=== PATIENT | male | born 1960 | race Caucasian/White ===

== ENCOUNTER 2016-09-05 09:35 | Inpatient (IN) | payer OTHER ==
[2016-09-05] MEDS ORDERED: ASPIRIN PO STA (09:45)
[2016-09-05 10:05] LABS: MANUAL DIFF NEEDED? NO
[2016-09-05 10:07] LABS: BASO% 0.6 % (0.0-0.8); EOS# 0.19 X1000 (0.0-0.7); EOS% 4.1 % (0.0-10.0); HEMATOCRIT 44.4 % (42.0-52.0); HEMOGLOBIN 15.1 g/dL (14.0-18.0); IMM GRAN# 0.01 X1000 (0.0-0.04); IMM GRAN% 0.2 % (0.0-0.5); LYMPH# 1.29 X1000 (1.2-3.4); LYMPH% 27.6 % (20.5-51.1); MCH 32.8 PG (27-31); MCV 96.5 FL (81-99); MONO# 0.71 X1000 (0.11-0.59); MONO% 15.2 % (1.7-9.3); MPV 9.8 FL (7.4-10.4); NEUT% 52.3 % (42.2-75.2); PLT 124 X1000 (130-400)
--- NOTE | 2016-09-05 10:19 | EKG Report ---
Test Performed on : 09/05/2016 10:11:05 AM Test Reason : CHEST PAIN Blood Pressure : / mmHG Vent. Rate : 069 BPM Atrial Rate : 069 BPM P-R Int : 162 ms QRS Dur : 092 ms QT Int : 418 ms P-R-T Axes : 029 -12 033 degrees QTc Int : 447 ms Normal sinus rhythm. Septal infarct , age undetermined Abnormal ECG No previous ECGs available Unconfirmed Result
[2016-09-05 10:21] LABS: INR 1.05 (0.86-1.15)
[2016-09-05 10:26] LABS: AGAP 10; ALBUMIN 4.2 g/dL (3.5-5.0); ALKALINE PHOSPHATASE 62 U/L (32-122); BUN 14 mg/dL (8-22); CHLORIDE 96 mmol/L (98-107); CK PROFILE 177 U/L (24-204); COSMO 279; GOT 55 U/L (10-34); GPT 47 U/L (10-44); MAGNESIUM 1.6 mg/dL (1.5-2.7); POTASSIUM 4.1 mmol/L (3.5-5.1); SODIUM 134 mmol/L (136-145); TCO2 28 mmol/L (25-35); TOTAL PROTEIN 7.9 g/dL (6.3-8.3)
--- NOTE | 2016-09-05 10:32 | PROVIDER DOCUMENTATION ---
HPI-Respiratory General - General Chief Complaint: Shortness of Breath Stated Complaint: COLD SX/CONGESTION Time Seen by Provider: 09/05/16 09:45 Source: patient, family Allergies/Adverse Reactions: Patient Allergies Allergy/AdvReac Type Severity Reaction Status Date / Time indomethacin [From Indocin] Allergy Unknown Verified 06/04/14 17:50 indomethacin sodium * Allergy Unknown Verified 06/04/14 17:50 [From Indocin] - History of Present Illness-Resp Nature of Presenting Problem: Reports to er with cc of sob x 1 day. Reports went to [facility] o2 sat was lower 90's. Symptoms of cough,chest and nasal congestion. Denies n,v,f. No sick contacts. Hx of MA and stents. Severity in ED: reports: severe Onset/Duration: reports: 24 hours ago Timing: reports: still present Cough Quality/Degree: reports: dry cough Current Respiratory Medication Therapy: Initiated see nurses note Similar Symptoms Previously?: No Recently seen or treated by another doctor?: Yes Review of Systems - Adult - REVIEW OF SYSTEMS - ADULT Constitutional: denies: chills, fever, fatique Eyes: reports: no symptoms reported Ears, Nose, Mouth & Throat: reports: ear pain, sinus problem. denies: throat pain Cardiovascular: reports: no symptoms reported Respiratory: reports: cough, shortness of breath. denies: hemoptysis, pleurisy , wheezing Gastrointestinal: denies: abdominal pain, diarrhea, nausea, vomiting Genitourinary: reports: no symptoms reported Musculoskeletal: reports: no symptoms reported Integumentary: reports: no symptoms reported Neurological: reports: no symptoms reported Psychiatric: reports: no symptoms reported Endocrine: reports: no symptoms reported Hematologic/Lymphatic: reports: no symptoms reported Allergic/Immunologic: reports: no symptoms reported All Other Systems: Reviewed and Negative Past History - Adult - PAST MEDICAL HISTORY-ADULT Review of Records: reports: Nursing Assessment Review, Medications Reviewed Major Childhood Illnesses: reports: denies history Cardiovascular: reports: CAD, HTN, MA Respiratory: reports: COPD Gastrointestinal: reports: denies history Obstetrical/Gynecological: reports: denies history Genitourinary: reports: denies history Musculoskeletal: reports: denies history Neurological: reports: denies history Endocrine/Immune: reports: denies history, Diabetes Other Conditions: reports: denies history - PRIOR SURGERIES/PROCEDURES Surgical/Procedure History: reports: back/neck - IMMUNIZATION STATUS Childhood Immunizations: See Nurse Assessment Flu Vaccine: See Nurse Assessment - FAMILY HISTORY Family History: reviewed, not pertinent - SOCIAL HISTORY Smoking: quit greater than 1 year Substance Use: none/never Physical Exam-General - PHYSICAL EXAM-ADULT Initial Vital Signs Reviewed: Yes - CONSTITUTIONAL General Appearance: alert, mild distress. negative: appears well - EYES Eyes: PERRL/EOMI, pink conjunctivae, sclera injected - HEAD, EARS, NOSE, MOUTH & THROAT HENMT: moist mucous membranes, pharynx normal, TM abnormal (right red tm), TM obscurred by cerumen (left) - RESPIRATORY Respiratory: chest non-tender, normal breath sounds, no pleuratic chest pain, no respiratory distress, no accessory muscle use, wheezing (expiratory) - CARDIOVASCULAR Cardiovascular: normal peripheral pulses, regular rate, rhythm, no edema, no gallop, no JVD, no murmur - GASTROINTESTINAL (ABDOMEN) Abdominal Exam: normal bowel sounds, non tender, soft, no organomegaly, no pulsatile mass - MUSCULOSKELETAL Back Exam: normal inspection Extremity: normal range of motion, non-tender, normal gait, other (tattoo left forearm) - SKIN Integumentary: normal color, normal turgor, warm/dry - PSYCHIATRIC Psych/Mental Status: normal mood/affect, normal thought content, normal thought process, oriented x 3 Progress - PLAN OF CARE/RESULTS Progress/Plan/Lab Results: Orders Category Date Time Status Cardiac Monitoring DIRECTED Care 09/05/16 09:45 Active Cardiac Monitoring DIRECTED Care 09/05/16 09:46 Active Oxygen Therapy- ED Nursing DIRECTED Care 09/05/16 09:45 Active Oxygen Therapy- ED Nursing DIRECTED Care 09/05/16 09:46 Active Saline Loc NOW Care 09/05/16 09:45 Active Saline Loc NOW Care 09/05/16 09:46 Active CHEST-2 VIEWS [RAD] Stat Exams 09/05/16 09:44 Taken CBC WITH ELECTRONIC DIFF [HEME] Stat Lab 09/05/16 10:03 Completed CK PROFILE [SP CHEM] Stat Lab 09/05/16 10:03 Completed COMPREHENSIVE METABOLIC PANEL [CHEM] Stat Lab 09/05/16 10:[address] Stat Lab 09/05/16 10:00 Completed MAGNESIUM [CHEM] Stat Lab 09/05/16 10:03 Completed PRO B-NATRIURETIC PEPTIDE Stat Lab 09/05/16 10:03 Received [address]IME WITH INR PL [COAG] Stat Lab 09/05/16 10:[address] [COAG] Stat Lab 09/05/16 10:03 Completed TROPONIN T Stat Lab 09/05/16 10:03 Completed Aspirin Med 09/05/16 09:45 Discontinued 325 mg PO STAT STA EKG [EKG] Stat Ther 09/05/16 09:45 Draft EKG [EKG] Stat Ther 09/05/16 09:46 Ordered Vital Signs - 24 hr 09/05/16 09:38 Temperature 99.8 F H Pulse Rate 79 Respiratory 24 Rate Blood Pressure 165/92 O2 Sat by Pulse 92 L Oximetry Laboratory Tests 09/05/16 09/05/16 09/05/16 10:00 10:03 10:03 WBC RBC Hgb Hct MCV MCH MCHC RDW Std Deviation Plt Count MPV Immature Gran % (Auto) Neut % (Auto) Lymph % (Auto) [place] % (Auto) Eos % (Auto) Baso % (Auto) Immature Gran # (Auto) Neut # (Auto) Lymph # (Auto) [place] # (Auto) Eos # (Auto) Baso # (Auto) PT INR APTT (Factor Assay) Sodium 134 L Potassium 4.1 Chloride 96 L Carbon Dioxide 28 Anion Gap 10 BUN 14 Creatinine 1.2 Estimated GFR/1.73 m2 > 60 BUN/Creatinine Ratio 12 Glucose 286 H Calculated Osmolality 279 Calcium 9.0 Magnesium 1.6 Total Bilirubin 0.50 AST 55 H ALT 47 H Alkaline Phosphatase 62 Creatine Kinase 177 Troponin T < 0.010 Total Protein 7.9 Albumin 4.2 Globulin 4.0 Albumin/Globulin Ratio 1.0 Influenza A (Rapid) NEGATIVE Influenza B (Rapid) NEGATIVE 09/05/16 09/05/16 10:03 10:03 WBC 4.68 L RBC 4.60 L Hgb 15.1 Hct 44.4 MCV 96.5 MCH 32.8 H MCHC 34.0 RDW Std Deviation 13.0 Plt Count 124 L MPV 9.8 Immature Gran % (Auto) 0.2 Neut % (Auto) 52.3 Lymph % (Auto) 27.6 [place] % (Auto) 15.2 H Eos % (Auto) 4.1 Baso % (Auto) 0.6 Immature Gran # (Auto) 0.01 Neut # (Auto) 2.45 Lymph # (Auto) 1.29 [place] # (Auto) 0.71 H Eos # (Auto) 0.19 Baso # (Auto) 0.03 PT 14.0 INR 1.05 APTT (Factor Assay) 32.0 Sodium Potassium Chloride Carbon Dioxide Anion Gap BUN Creatinine Estimated GFR/1.73 m2 BUN/Creatinine Ratio Glucose Calculated Osmolality Calcium Magnesium Total Bilirubin AST ALT Alkaline Phosphatase Creatine Kinase Troponin T Total Protein Albumin Globulin Albumin/Globulin Ratio Influenza A (Rapid) Influenza B (Rapid) Orders Category Date Time Status Cardiac Monitoring DIRECTED Care 09/05/16 09:45 Active Cardiac Monitoring DIRECTED Care 09/05/16 09:46 Active Oxygen Therapy- ED Nursing DIRECTED Care 09/05/16 09:45 Active Oxygen Therapy- ED Nursing DIRECTED Care 09/05/16 09:46 Active Saline Loc NOW Care 09/05/16 09:45 Active Saline Loc NOW Care 09/05/16 09:46 Active CHEST-2 VIEWS [RAD] Stat Exams 09/05/16 09:44 Draft CBC WITH ELECTRONIC DIFF [HEME] Stat Lab 09/05/16 10:03 Completed CK PROFILE [SP CHEM] Stat Lab 09/05/16 10:03 Completed COMPREHENSIVE METABOLIC PANEL [CHEM] Stat Lab 09/05/16 10:[address] Stat Lab 09/05/16 10:00 Completed MAGNESIUM [CHEM] Stat Lab 09/05/16 10:03 Completed PRO B-NATRIURETIC PEPTIDE Stat Lab 09/05/16 10:03 Completed [address]IME WITH INR PL [COAG] Stat Lab 09/05/16 10:[address] [COAG] Stat Lab 09/05/16 10:03 Completed TROPONIN T Stat Lab 09/05/16 10:03 Completed Albuterol 2.5MG/Ipratrop 0.5MG [Duoneb (A & A)] Med 09/05/16 10:34 Discontinued 3 ml INH NOW ONE Aspirin Med 09/05/16 09:45 Discontinued 325 mg PO STAT STA Methylprednisolone Sod Succ [Solu-Medrol] Med 09/05/16 10:35 Discontinued 125 mg IV NOW ONE Aerosol Treatments Routine Oth 09/05/16 10:35 Completed Aerosol Treatments Stat Oth 09/05/16 10:35 Completed EKG [EKG] Stat Ther 09/05/16 09:45 Draft EKG [EKG] Stat Ther 09/05/16 09:46 Ordered Laboratory Tests 09/05/16 09/05/16 09/05/16 10:00 10:00 10:03 WBC RBC Hgb Hct MCV MCH MCHC RDW Std Deviation Plt Count MPV Immature Gran % (Auto) Neut % (Auto) Lymph % (Auto) [place] % (Auto) Eos % (Auto) Baso % (Auto) Immature Gran # (Auto) Neut # (Auto) Lymph # (Auto) [place] # (Auto) Eos # (Auto) Baso # (Auto) PT INR APTT (Factor Assay) D-Dimer < 0.22 L Sodium 134 L Potassium 4.1 Chloride 96 L Carbon Dioxide 28 Anion Gap 10 BUN 14 Creatinine 1.2 Estimated GFR/1.73 m2 > 60 BUN/Creatinine Ratio 12 Glucose 286 H Calculated Osmolality 279 Calcium 9.0 Magnesium 1.6 Total Bilirubin 0.50 AST 55 H ALT 47 H Alkaline Phosphatase 62 Creatine Kinase 177 Troponin T [id number]-Lwmkwmzgete Pept Total Protein 7.9 Albumin 4.2 Globulin 4.0 Albumin/Globulin Ratio 1.0 Influenza A (Rapid) NEGATIVE Influenza B (Rapid) NEGATIVE 09/05/16 09/05/16 09/05/16 10:03 10:03 10:03 WBC 4.68 L RBC 4.60 L Hgb 15.1 Hct 44.4 MCV 96.5 MCH 32.8 H MCHC 34.0 RDW Std Deviation 13.0 Plt Count 124 L MPV 9.8 Immature Gran % (Auto) 0.2 Neut % (Auto) 52.3 Lymph % (Auto) 27.6 [place] % (Auto) 15.2 H Eos % (Auto) 4.1 Baso % (Auto) 0.6 Immature Gran # (Auto) 0.01 Neut # (Auto) 2.45 Lymph # (Auto) 1.29 [place] # (Auto) 0.71 H Eos # (Auto) 0.19 Baso # (Auto) 0.03 PT INR APTT (Factor Assay) D-Dimer Sodium Potassium Chloride Carbon Dioxide Anion Gap BUN Creatinine Estimated GFR/1.73 m2 BUN/Creatinine Ratio Glucose Calculated Osmolality Calcium Magnesium Total Bilirubin AST ALT Alkaline Phosphatase Creatine Kinase Troponin T < 0.010 Voo-P-Ctbvdzdbcyu Pept 205 H Total Protein Albumin Globulin Albumin/Globulin Ratio Influenza A (Rapid) Influenza B (Rapid) 09/05/16 10:03 WBC RBC Hgb Hct MCV MCH MCHC RDW Std Deviation Plt Count MPV Immature Gran % (Auto) Neut % (Auto) Lymph % (Auto) [place] % (Auto) Eos % (Auto) Baso % (Auto) Immature Gran # (Auto) Neut # (Auto) Lymph # (Auto) [place] # (Auto) Eos # (Auto) Baso # (Auto) PT 14.0 INR 1.05 APTT (Factor Assay) 32.0 D-Dimer Sodium Potassium Chloride Carbon Dioxide Anion Gap BUN Creatinine Estimated GFR/1.73 m2 BUN/Creatinine Ratio Glucose Calculated Osmolality Calcium Magnesium Total Bilirubin AST ALT Alkaline Phosphatase Creatine Kinase Troponin T Mcx-B-Ixgkcvpdrwn Pept Total Protein Albumin Globulin Albumin/Globulin Ratio Influenza A (Rapid) Influenza B (Rapid) 130[address] DR.[place] gerard - REASSESSMENT Reassessment #1 Time Reassessed: 12:29 (After albuterol treatment no relief still has low 02 sat in the 80's. MD Araujo at bedside reports to pt that he will need to be admitted pt verbally agrees with poc and teratment.) - EKG 1 Time of EKG reading by physician:: 10:11 EKG Read and Signed by:: Alexa Araujo Jr EKG Interpretation (*Must complete 3 of following elements*): Abnormal (septal infarct age undetermined) Rate: 69 Rhythm: nsr [place]: normal 2 Time of EKG reading by physician:: 12:13 EKG Read and Signed by:: Alexa Araujo Jr EKG Interpretation (*Must complete 3 of following elements*): Abnormal (septal infarct age undetermined) Rate: 63 Rhythm: nsr [place]: normal QRS: other (low voltage QRS) - XRAY 1 XRAY: Bilateral XRAY Study: Chest Impression: Abnormal XRAY Interpretation: CMG - CONSULTS/PCP/HOSPITALIST Notification #1 *Consult/PCP/Hospitalist*: Time Discussed: 13:03 Consult Disposition: Admit (to ) Departure - Departure Time of Disposition Order: 12:37 DIAGNOSIS: COPD exacerbation Disposition: ADMITTED INPATIENT 09 Certified Medical Emergency: Emergent Condition: Stable Referrals: Alexis Meeks MD [Primary Care Provider] - Attestation - Scribe Verification/Attestation Scribe:: Ping Campos Acting as Scribe for:: Alexa Araujo Jr Scribe documention review:: This chart was documented by a scribe and accurately reflects the service the provider performed and the decisions made by the provider.
[2016-09-05] MEDS ORDERED: DUONEB (A & A) INH ONE (10:34)
[2016-09-05] MEDS ORDERED: SOLU-MEDROL IV ONE (10:35)
--- NOTE | 2016-09-05 10:36 | Diag Imaging Result Document ---
PROCEDURE NAME: CHEST-2 VIEWS - 09/05/2016 CHEST TWO VIEWS: INDICATION: Shortness of breath. FINDINGS: There is cardiomegaly. No infiltrates or effusions are appreciated No pneumothorax. There are postsurgical changes lower cervical spine. IMPRESSION: Cardiomegaly.
--- NOTE | 2016-09-05 12:38 | EKG Report ---
Test Performed on : 09/05/2016 12:13:26 PM Test Reason : SOB Blood Pressure : / mmHG Vent. Rate : 063 BPM Atrial Rate : 063 BPM P-R Int : 148 ms QRS Dur : 090 ms QT Int : 428 ms P-R-T Axes : 031 -12 046 degrees QTc Int : 437 ms Normal sinus rhythm. Low voltage QRS Septal infarct (cited on or before 05-SEP-2016) Abnormal ECG When compared with ECG of 05-SEP-2016 10:11, (Unconfirmed) Questionable change in initial forces of Septal leads Unconfirmed Result
[2016-09-05] MEDS: DUONEB (A & A) INH SCH ×3 (15:00→19:54)
[2016-09-05] MEDS ORDERED: TYLENOL PO PRN (21:20)
[2016-09-05] MEDS ORDERED: ZOFRAN IV PRN (21:20)
[2016-09-05] MEDS ORDERED: SODIUM CHLORIDE 0.9% INJ SCH (21:30)
[2016-09-05] MEDS: NS 1,000 ML IV SCH (22:05)
[2016-09-05] MEDS: LOVENOX SUBQ SCH (22:05)
[2016-09-05] MEDS: PROTONIX IV SCH (22:05)
[2016-09-05] MEDS: SOLU-MEDROL IV SCH (22:05)
[2016-09-05] MEDS: LEVAQUIN 500 MG/D5W 100 ML IV SCH (22:05)
[2016-09-06] MEDS: EFFIENT PO SCH ×2 (00:20→21:21)
[2016-09-06] MEDS: ROCEPHIN 1 GM/NS 50 ML IV SCH ×2 (00:44→22:39)
[2016-09-06] MEDS: DUONEB (A & A) INH SCH ×7 (03:46→22:36)
[2016-09-06] MEDS: SOLU-MEDROL IV SCH ×3 (05:02→21:18)
[2016-09-06] MEDS ORDERED: DUONEB (A & A) INH PRN (06:16)
[2016-09-06 06:17] LABS: HEMATOCRIT 41.6 % (42.0-52.0); MCHC 33.7 g/dL (33-37); MCV 95.2 FL (81-99); MPV 10.2 FL (7.4-10.4); RBC 4.37 XMIL (4.7-6.1)
[2016-09-06 06:33] LABS: AGAP 8; ALBUMIN 3.8 g/dL (3.5-5.0); ALKALINE PHOSPHATASE 53 U/L (32-122); BUN 19 mg/dL (8-22); CALCIUM 8.9 mg/dL (8.8-10.2); CHLORIDE 99 mmol/L (98-107); COSMO 277; GOT 41 U/L (10-34); GPT 39 U/L (10-44); POTASSIUM 4.2 mmol/L (3.5-5.1); SODIUM 132 mmol/L (136-145); TCO2 26 mmol/L (25-35); TOTAL PROTEIN 7.2 g/dL (6.3-8.3)
[2016-09-06] MEDS: KLOR-CON PO SCH (08:12)
[2016-09-06] MEDS: COREG PO SCH ×2 (08:12→21:00)
[2016-09-06] MEDS: LASIX PO SCH (08:12)
[2016-09-06] MEDS: HUMALOG SUBQ SCH ×2 (08:53→11:36)
[2016-09-06] MEDS ORDERED: EFFIENT PO SCH (09:00)
[2016-09-06] MEDS ORDERED: CARAFATE PO SCH (09:00)
--- NOTE | 2016-09-06 09:16 | PROGRESS NOTE ---
DATE: 09/06/2016 SUBJECTIVE: The patient states he is feeling a little bit better. Less cough, congestion. Still having some chest pressure when he coughs. Still having a headache when he coughs. Denies any GI or issues otherwise. OBJECTIVE: Vital signs: Temperature 98 degrees, pulse 84, respiratory 20, BP 153/87. General: The patient is well developed, well nourished. He is in no true respiratory distress. He is awake, alert. Neck: Supple. CV: Regular rate. Chest: Relatively clear compared to yesterday's exam but still having some diffuse wheezing. Better air movement. Abdomen: Soft, nondistended. Extremities: Moves all extremities. Neurologic: No changes. LABS: CBC and CMP essentially normal with a sodium of 132. ASSESSMENT: 1. Hyponatremia, stable. 2. Hyperglycemia in the setting of diabetes with a patient on steroids. Continue sliding scale insulin. 3. Chronic obstructive pulmonary disease with exacerbation. 4. Chronic tobacco abuse. Again, discussed with the patient the perils of smoking and smoke exposure. 5. Hypothyroidism. 6. High cholesterol. 7. Hypertension. 8. Chronic reflux. 9. Chronic obstructive pulmonary disease with acute hypoxic respiratory failure. PLAN: We will continue to wean his oxygen. Continue breathing treatments. Continue weaning steroids, antibiotics. Hopefully home in the next 2-3 days.
[2016-09-06] MEDS: NS 1,000 ML IV SCH (11:40)
[2016-09-06] MEDS ORDERED: CHLORASEPTIC SPRAY MT PRN (13:56)
[2016-09-06] MEDS: HUMALOG DOSE (PARKWAY) SUBQ SCH ×2 (15:47→22:29)
[2016-09-06] MEDS ORDERED: EFFIENT ONE (21:06)
[2016-09-06] MEDS: LOVENOX SUBQ SCH (21:18)
[2016-09-06] MEDS: PROTONIX IV SCH (21:18)
[2016-09-06] MEDS: LEVAQUIN 500 MG/D5W 100 ML IV SCH (21:18)
[2016-09-06] MEDS: ZYRTEC PO SCH (21:19)
[2016-09-06] MEDS: SYNTHROID PO SCH (21:20)
[2016-09-06] MEDS: ZOCOR PO SCH (21:20)
[2016-09-06] MEDS: ZYLOPRIM PO SCH (21:20)
[2016-09-06] MEDS: ASPIRIN EC PO SCH (21:21)
[2016-09-06] MEDS: ACTOS PO SCH (21:21)
[2016-09-07] MEDS ORDERED: AMBIEN PO ONE ×2 (00:15→20:35)
[2016-09-07] MEDS ORDERED: AMBIEN ONE (00:33)
[2016-09-07] MEDS: DUONEB (A & A) INH SCH ×6 (03:47→22:29)
[2016-09-07] MEDS: SOLU-MEDROL IV SCH ×2 (04:39→16:29)
[2016-09-07 06:11] LABS: HEMATOCRIT 38.4 % (42.0-52.0); MCH 32.7 PG (27-31); MCHC 33.9 g/dL (33-37); MCV 96.7 FL (81-99); MPV 10.3 FL (7.4-10.4); RBC 3.97 XMIL (4.7-6.1)
[2016-09-07] MEDS: HUMALOG DOSE (PARKWAY) SUBQ SCH ×4 (06:17→21:06)
[2016-09-07 06:22] LABS: HEMOGLOBIN A1C 8.8 % (4.8-6.0)
[2016-09-07 07:00] LABS: AGAP 6; ALBUMIN 3.7 g/dL (3.5-5.0); ALKALINE PHOSPHATASE 51 U/L (32-122); BUN 20 mg/dL (8-22); CALCIUM 8.9 mg/dL (8.8-10.2); CHLORIDE 99 mmol/L (98-107); COSMO 281; GOT 30 U/L (10-34); GPT 34 U/L (10-44); POTASSIUM 4.8 mmol/L (3.5-5.1); SODIUM 133 mmol/L (136-145); TCO2 28 mmol/L (25-35); TOTAL PROTEIN 6.8 g/dL (6.3-8.3)
[2016-09-07] MEDS: PATIENT'S OWN MED PO SCH ×2 (08:10→21:02)
[2016-09-07] MEDS: NS 1,000 ML IV SCH ×2 (08:10→16:28)
[2016-09-07] MEDS: EFFIENT PO SCH (08:14)
[2016-09-07] MEDS: COREG PO SCH ×2 (08:14→20:27)
[2016-09-07] MEDS: LASIX PO SCH (08:14)
--- NOTE | 2016-09-07 08:35 | Diag Imaging Result Document ---
PROCEDURE NAME: CHEST-2 VIEWS - 09/07/2016 CHEST, TWO VIEWS: COMPARISON: 09/05/2016. INDICATION: Hypoxia. FINDINGS: There is stable borderline cardiomegaly. Stable postsurgical changes lower cervical spine. The pulmonary vasculature is not congested. No acute infiltrates or effusions are appreciated. There is no pneumothorax. IMPRESSION: Stable chest. No acute abnormalities.
[2016-09-07] MEDS: KLOR-CON PO SCH (08:55)
[2016-09-07] MEDS ORDERED: AYR NASAL SPRAY NAS PRN (10:32)
--- NOTE | 2016-09-07 11:26 | PROGRESS NOTE ---
DATE: 09/07/2016 SUBJECTIVE: Patient states he is feeling a little bit better. He is having less cough, congestion, less shortness of breath. He actually slept somewhat last night. He denies any chest pain or palpitations. OBJECTIVE/PHYSICAL EXAMINATION: Vital signs: Temp 98, pulse 70, respiratory rate 20, BP 130/78, sat 96% on 2 L. General: The patient is well developed and well nourished, currently in mild respiratory distress. He is awake, alert, and oriented. Neck: Supple. CV: Regular rate. Chest: Relatively clear. He has got mild wheezing, but this is very close to his baseline. Abdomen: Soft, obese, nondistended. Extremities: He moves all extremities. Neurological: No changes. Skin: Warm and dry no rashes. IMAGING: Chest x-ray clear. LABS: WBCs 12. Sodium 133, glucose 310. ASSESSMENT: 1. Leukocytosis likely secondary to his steroid as he is clinically better. 2. Chronic obstructive pulmonary disease with exacerbation. 3. Diabetes with poor home control. A1c is 8.8. 4. Hypothyroidism, stable. 5. Chronic tobacco abuse. Again, discussed with patient the perils of smoking as well as ways to stop. 6. High cholesterol. 7. Hypertension. 8. Chronic reflux, certainly could be contributing some to his symptom. Therefore, he was placed on IV Protonix. PLAN: Will decrease his Solu-Medrol today. Will continue to follow. Hopefully, we will able to discharge home in the next 1-2 days. Will attempt to wean off oxygen, if possible.
[2016-09-07] MEDS: PROTONIX IV SCH ×2 (20:26→21:02)
[2016-09-07] MEDS: ACTOS PO SCH (20:26)
[2016-09-07] MEDS: LOVENOX SUBQ SCH ×2 (20:26→21:02)
[2016-09-07] MEDS: SYNTHROID PO SCH (20:26)
[2016-09-07] MEDS: ASPIRIN EC PO SCH (20:27)
[2016-09-07] MEDS: ZYRTEC PO SCH (20:27)
[2016-09-07] MEDS: ZYLOPRIM PO SCH (20:27)
[2016-09-07] MEDS: ZOCOR PO SCH (20:27)
[2016-09-07] MEDS: LEVAQUIN 500 MG/D5W 100 ML IV SCH (21:02)
[2016-09-07] MEDS: ROCEPHIN 1 GM/NS 50 ML IV SCH (23:20)
[2016-09-08] MEDS: DUONEB (A & A) INH SCH ×6 (03:36→23:11)
[2016-09-08] MEDS: SOLU-MEDROL IV SCH ×2 (05:21→16:20)
[2016-09-08] MEDS: HUMALOG DOSE (PARKWAY) SUBQ SCH ×4 (06:40→20:39)
[2016-09-08] MEDS: NS 1,000 ML IV SCH (07:49)
[2016-09-08 08:35] LABS: AGAP 7; ALBUMIN 3.6 g/dL (3.5-5.0); ALKALINE PHOSPHATASE 49 U/L (32-122); BUN 23 mg/dL (8-22); CALCIUM 8.7 mg/dL (8.8-10.2); CHLORIDE 101 mmol/L (98-107); COSMO 290; GOT 27 U/L (10-34); GPT 31 U/L (10-44); POTASSIUM 4.2 mmol/L (3.5-5.1); SODIUM 137 mmol/L (136-145); TCO2 29 mmol/L (25-35); TOTAL PROTEIN 6.5 g/dL (6.3-8.3)
[2016-09-08] MEDS ORDERED: LEVAQUIN 500 MG/D5W 100 ML IV SCH (09:10)
--- NOTE | 2016-09-08 09:28 | PROGRESS NOTE ---
DATE: 09/08/2016 SUBJECTIVE: The patient still notes he is having increased work of breathing, increased shortness of breath, cough congestion. Denies any true chest pain, palpitations. Denies any GI or issues. OBJECTIVE: Vital Signs: Temperature 97, pulse 67, respiratory rate 18, BP 134/58. General: The patient is well developed, well nourished. He is currently in mild respiratory distress. He is awake, alert, oriented. Neck: Supple. CV: Regular rate. Chest: Clear. Nonlabored. Abdomen: Soft. HEENT: Normocephalic, atraumatic. Neck: Supple. CV regular rate. Chest: Decreased breath sounds but equal bilaterally. Abdomen: Soft, nondistended. Extremities: Moves all extremities. Neurologic: No changes. LABS: Stable. Blood sugars are still elevated in the 300s. ASSESSMENT: 1. Chronic obstructive pulmonary disease with exacerbation. Continue steroids, breathing treatments, antibiotics. He currently has weaned off of oxygen. We will saline lock. 2. Diabetes. Poor control. Blood sugars in the 300 range. Continue sliding scale insulin. He is on Actos 30. 3. Known coronary artery disease. Continue Effient. 4. Hypertension, stable.
[2016-09-08] MEDS: COREG PO SCH ×2 (09:45→20:43)
[2016-09-08] MEDS: KLOR-CON PO SCH (09:45)
[2016-09-08] MEDS: LASIX PO SCH (09:46)
[2016-09-08] MEDS: SYNTHROID PO SCH (20:43)
[2016-09-08] MEDS: EFFIENT PO SCH (20:43)
[2016-09-08] MEDS: ACTOS PO SCH (20:47)
[2016-09-08] MEDS: ASPIRIN EC PO SCH (20:47)
[2016-09-08] MEDS: ROCEPHIN 1 GM/NS 50 ML IV SCH (20:48)
[2016-09-08] MEDS: ZYLOPRIM PO SCH (20:48)
[2016-09-08] MEDS: LOVENOX SUBQ SCH (20:48)
[2016-09-08] MEDS: ZOCOR PO SCH (20:48)
[2016-09-08] MEDS: ZYRTEC PO SCH (20:50)
[2016-09-08] MEDS ORDERED: LANTUS INSULIN (PARKWAY) SUBQ SCH (21:00)
[2016-09-08] MEDS ORDERED: LEVAQUIN PO SCH (21:00)
[2016-09-08] MEDS: PATIENT'S OWN MED PO SCH (21:05)
[2016-09-08] MEDS ORDERED: AMBIEN PO ONE (21:59)
[2016-09-09] MEDS: DUONEB (A & A) INH SCH ×2 (02:47→08:20)
[2016-09-09] MEDS: SOLU-MEDROL IV SCH (06:13)
[2016-09-09] MEDS ORDERED: PROTONIX PO SCH (07:00)
[2016-09-09] MEDS: HUMALOG DOSE (PARKWAY) SUBQ SCH ×2 (07:01→11:15)
[2016-09-09 07:53] VITALS: BP 140/71
[2016-09-09] MEDS: COREG PO SCH (08:15)
[2016-09-09] MEDS: EFFIENT PO SCH (08:15)
[2016-09-09] MEDS: LASIX PO SCH (08:16)
[2016-09-09] MEDS: KLOR-CON PO SCH (08:16)
--- NOTE | 2016-09-09 16:15 | HISTORY AND PHYSICAL ---
CHIEF COMPLAINT: Shortness of breath. HISTORY OF PRESENT ILLNESS: Patient is a 55-year-old male who has a known history of COPD and a former smoker. He states he stopped several years ago. Presents to the emergency department with increased cough, congestion, shortness of breath, and increased work of breathing. He denies any fevers or chills. He has a history of coronary artery disease and has had heart stents placed. ALLERGIES: Indomethacin. REVIEW OF SYSTEMS: Denies any current fevers or chills. Does have sinus congestion and drainage. Denies any production to his cough. States he has been short of breath, wheezing, difficulty breathing, dyspnea on exertion. Denies any PND or orthopnea. Denies any pedal edema. No dysuria or frequency. Denies hesitancy, polyuria, polydipsia. Denies constipation, melena, hematochezia. PAST MEDICAL HISTORY: Known coronary artery disease with recent stent placement. History of MD, hypertension, COPD. History of diabetes, chronic neck and back pain. FAMILY HISTORY: Noncontributory. SOCIAL HISTORY: Patient is reviewed. He does have a long history of smoking, although he stopped greater than a year ago. MEDICATIONS: Actos. Nesina. He is not currently on insulin at home. He does take something for blood pressure. Has nebulized treatments at home. He does not remember the rest of his medication list currently. PHYSICAL EXAMINATION: VITAL SIGNS: Temperature 98 degrees, pulse 79, respiratory 24, BP 165/92. GENERAL: Patient is well-developed, well-nourished. Currently in no real respiratory distress. He is awake, alert, oriented. NECK: Supple. CV: Regular rate and rhythm. No appreciable murmurs. CHEST: Decreased breath sounds bilaterally but equal. Positive wheezing. No apparent crackles. ABDOMEN: Soft, nondistended, nontender. EXTREMITIES: Moves all extremities. NEUROLOGIC: No focal changes. SKIN: Warm and dry, no rashes. DIAGNOSTIC DATA: WBCs 4, hemoglobin and hematocrit 15 and 44. Sodium 134, glucose 286, ALT 55, AST 47. Chest x-ray relatively clear. Flu swab negative. D-dimer is less than 0.22. ASSESSMENT: 1. Chronic obstructive pulmonary disease with moderate exacerbation. 2. Diabetes with hyperglycemia. 3. Hypertension. 4. Known coronary artery disease. PLAN: We will admit patient to the hospital. IV fluids. Oxygen, breathing treatments, antibiotics. We will start him on steroids and sliding scale insulin to control his blood sugars.
--- NOTE | 2016-09-09 22:16 | DISCHARGE SUMMARY ---
ADMISSION DATE: 09/05/2016 DISCHARGE DATE: 09/09/2016 DISCHARGE DIAGNOSES: 1. Chronic obstructive pulmonary disease with moderate exacerbation. 2. Diabetes with hyperglycemia and poor home control, A1c 8.8. 3. Hypertension. 4. Known coronary artery disease. 5. High cholesterol. 6. Chronic pain. 7. Hypoxemia secondary to chronic obstructive pulmonary disease exacerbation resolved. CONSULTATIONS: None. PROCEDURES: None. BRIEF HOSPITAL COURSE: The patient was admitted to the hospital as noted in HPI and treated in the usual fashion, placed on breathing treatments, oxygen, steroids, antibiotics. Thankfully he had an uneventful course. His blood sugars were easily maintained with sliding scale insulin. On discharge he was awake, alert. He was still tired and short of breath, still had faint wheezing but marked improvement from his initial admission. DISPOSITION: Spent 36 minutes in discharge planning and instructions discussing with patient that he needs to avoid all persons, places that smoke or have strong chemical odors. Discussed with patient how to use his breathing treatments as well as Dulera. Discussed with him that he may need to go on insulin, check blood sugars 2 to 3 times a day the next few days and call the office. Will adjust medications as needed.
== END 2016-09-09 12:04 | disposition home or self-care (01) | DRG 191 ==
LOC: P.ED 09:35 → P.MEDSURG 12:29 → OBSVTOIN 12:29
PROVIDERS: ADMIT Family Medicine; ATTEND Family Medicine
DX: J44.1 Chronic obstructive pulmonary disease with (acute) exacerbation (principal); E87.1 Hypo-osmolality and hyponatremia; E11.65 Type 2 diabetes mellitus with hyperglycemia; R09.02 Hypoxemia; I25.10 Atherosclerotic heart disease of native coronary artery without angina pectoris; I25.2 Old myocardial infarction; I10 Essential (primary) hypertension; E78.00 Pure hypercholesterolemia, unspecified; E03.9 Hypothyroidism, unspecified; D72.829 Elevated white blood cell count, unspecified; K21.9 Gastro-esophageal reflux disease without esophagitis; Z79.899 Other long term (current) drug therapy; Z79.82 Long term (current) use of aspirin; Z87.891 Personal history of nicotine dependence; Z95.5 Presence of coronary angioplasty implant and graft; T38.0X5A Adverse effect of glucocorticoids and synthetic analogues, initial encounter
CPT/HCPCS: 71020; 80053; 82550; 82948; 83036; 83735; 83880; 84484; 85025; 85027; 85379; 85610; 85730; 87040; 87804; 93005; 94640; 94761; 94799; 96374; C9113; J0696; J1650; J1815; J2920; J2930; J7030; S0164

== ENCOUNTER 2018-09-27 22:07 | Observation (INO) ==
[2018-09-28] MEDS ORDERED: ZOFRAN IV ONE (00:29)
[2018-09-28] MEDS ORDERED: MORPHINE IV ONE (00:29)
--- NOTE | 2018-09-28 01:02 | EKG Report ---
Test Performed on : 09/27/2018 10:52:00 PM Test Reason : cp Blood Pressure : / mmHG Vent. Rate : 092 BPM Atrial Rate : 092 BPM P-R Int : 164 ms QRS Dur : 088 ms QT Int : 382 ms P-R-T Axes : 018 -17 -08 degrees QTc Int : 472 ms Normal sinus rhythm. Septal infarct (cited on or before 05-SEP-2016) Abnormal ECG When compared with ECG of 27-SEP-2018 16:03, (Unconfirmed) Serial changes of Septal infarct present Unconfirmed Result
[2018-09-28] MEDS ORDERED: MORPHINE IM ONE (01:06)
[2018-09-28] MEDS ORDERED: ZOFRAN IM ONE (01:07)
--- NOTE | 2018-09-28 03:47 | EKG Report ---
Test Performed on : 09/28/2018 02:15:57 AM Test Reason : chest pain Blood Pressure : / mmHG Vent. Rate : 081 BPM Atrial Rate : 081 BPM P-R Int : 164 ms QRS Dur : 084 ms QT Int : 396 ms P-R-T Axes : 023 -23 -43 degrees QTc Int : 460 ms Normal sinus rhythm. Cannot rule out Anteroseptal infarct (cited on or before 05-SEP-2016) Abnormal ECG When compared with ECG of 27-SEP-2018 22:52, (Unconfirmed) Nonspecific T wave abnormality now evident in Anterolateral leads Unconfirmed Result
--- NOTE | 2018-09-28 04:53 | PROVIDER DOCUMENTATION ---
This chart was entered by Erendira Encarnacion Scribe, acting as scribe for Nilay Lezama CRNP. HPI-Chest Pain - General Chief Complaint: Chest Pain Stated Complaint: RETURN/RETREAT Time Seen by Provider: 09/27/18 23:14 Source: patient Allergies/Adverse Reactions: Patient Allergies Allergy/AdvReac Type Severity Reaction Status Date / Time indomethacin [From Indocin] Allergy Unknown Verified 09/27/18 13:38 indomethacin sodium * Allergy Unknown Verified 09/27/18 13:38 [From Indocin] Home Medications: Home Medication List Medication Instructions Recorded Confirmed Last Taken Type Allopurinol [Zyloprim] 300 mg PO QHS 09/05/16 11/06/17 11/06/17 18:15 History 300 MG Alogliptin Benzoate [Alogliptin] 25 mg PO HS 09/05/16 11/06/17 11/06/17 18:15 History 25 MG Aspirin [Low Dose Aspirin EC] 81 mg PO HS 09/05/16 11/06/17 11/06/17 18:15 History 81 MG Carvedilol [Coreg] 6.25 mg PO BID 09/05/16 11/06/17 11/06/17 18:15 History 6.25 MG Cetirizine HCl [Zyrtec] 10 mg PO HS 09/05/16 11/06/17 11/06/17 18:15 History 10 MG Furosemide [Lasix] 20 mg PO DAILY 09/05/16 11/06/17 11/06/17 07:15 History 20 MG Glimepiride [Amaryl] 2 mg PO HS 09/05/16 11/06/17 11/06/17 07:15 History 2 MG Levothyroxine Sodium 88 mcg PO HS 09/05/16 11/06/17 11/06/17 18:15 History 88 MCG Omeprazole [Prilosec] 20 mg PO DAILY@0700 09/05/16 11/06/17 11/06/17 18:15 History 20 MG Potassium Chloride 20 meq PO DAILY 09/05/16 11/06/17 11/06/17 07:15 History 20 MEQ Prasugrel [Effient] 10 mg PO DAILY 09/05/16 11/06/17 11/06/17 18:15 History 10 MG Albuterol 2.5MG/Ipratrop 0.5MG 3 ml INH RTQ4H #120 neb 09/09/16 11/06/17 Unknown Rx [Duoneb (A & A)] Mometasone/Formoterol [Dulera 200 60 puff IH BID #1 hfa.aer.ad 09/09/16 Unknown Rx Mcg/5 Mcg Inhaler] Atorvastatin Calcium 40 mg PO HS 11/06/17 11/06/17 11/06/17 18:15 History 40 MG Fluconazole [Diflucan] 150 mg PO DAILY #7 tab 09/27/18 Unknown Rx Nitroglycerin 0.4 mg SL DIRECTED PRN PRN #20 09/27/18 Unknown Rx tab.subl - History of Present Illness-CP Nature of Presenting Problem: pt is a 57 yr old male presenting with complaint of left chest pain radiating to shoulder and back, pt reports he was seen here this afternoon but was pain- free throughout that visit. pt reports pain onset just after discharge and continuing to worsen throughout the evening. pt reports pain x 8-10days. Location: reports: other (left) Chest Pain Radiation: reports: shoulders, back Quality of Pain: reports: sharp Severity in ED: moderate Onset/Duration: this evening Timing: still present, getting worse Context/Activities at Onset: reports: light activity (onset just after being discharged home from ER this evening) Modifying Factors: improves with: nothing Associated Symptoms: reports: back pain. denies: diaphoresis, nausea, shortness of breath, vomiting Nitro Today/Relief: no nitro taken today Aspirin Treatment Today: 325 mg x 1, provided by ED Prior Chest Pain/Cardiac Workup: reports: other (cardiac workup today) Similar Symptoms Previously?: Yes Recently Seen Here or By Another Healthcare Provider: Yes (seen here today for same) Review of Systems - Adult - REVIEW OF SYSTEMS - ADULT Constitutional: denies: fatique Eyes: denies: blurred vision, double vision Ears, Nose, Mouth & Throat: reports: no symptoms reported Cardiovascular: reports: chest pain. denies: edema, palpitations, syncope Respiratory: denies: cough, shortness of breath, wheezing Gastrointestinal: denies: nausea, vomiting Genitourinary: reports: no symptoms reported Musculoskeletal: reports: back pain, joint pain. denies: neck pain Integumentary: reports: no symptoms reported Neurological: denies: dizziness/vertigo, headache/migraines Psychiatric: reports: no symptoms reported Endocrine: reports: no symptoms reported Hematologic/Lymphatic: reports: no symptoms reported Allergic/Immunologic: reports: no symptoms reported All Other Systems: Reviewed and Negative Past History - Adult - PAST MEDICAL HISTORY-ADULT Review of Records: reports: Old Records Reviewed, Nursing Assessment Review, Medications Reviewed, Social history reviewed & non-contributory. Major Childhood Illnesses: reports: denies history Cardiovascular: reports: CAD, HTN, [place] Respiratory: reports: COPD Gastrointestinal: reports: denies history Obstetrical/Gynecological: reports: denies history Genitourinary: reports: denies history Musculoskeletal: reports: denies history Neurological: reports: denies history Endocrine/Immune: reports: denies history, Diabetes Other Conditions: reports: denies history - PRIOR SURGERIES/PROCEDURES Surgical/Procedure History: reports: back/neck - IMMUNIZATION STATUS Childhood Immunizations: See Nurse Assessment Flu Vaccine: See Nurse Assessment - FAMILY HISTORY Family History: reviewed, not pertinent - SOCIAL HISTORY Smoking: denies Substance Use: denies Living Situation: family Physical Exam-General - PHYSICAL EXAM-ADULT Initial Vital Signs Reviewed: Yes - CONSTITUTIONAL General Appearance: appears well, alert, no apparent distress, obese - EYES Eyes: PERRL/EOMI - HEAD, EARS, NOSE, MOUTH & THROAT HENMT: normocephalic/atraumatic, moist mucous membranes - NECK Neck: non-tender, full range of motion, supple, normal inspection - RESPIRATORY Respiratory: chest non-tender, lungs clear, normal breath sounds - CARDIOVASCULAR Cardiovascular: normal peripheral pulses, regular rate, rhythm, no edema - GASTROINTESTINAL (ABDOMEN) Abdominal Exam: normal bowel sounds, non tender, soft - LYMPHATIC Lymphatic: no adenopathy - MUSCULOSKELETAL Back Exam: normal inspection, no CVA tenderness, no vertebral tenderness Extremity: normal range of motion, non-tender, normal gait, normal inspection - SKIN Integumentary: normal color, normal turgor, warm/dry - NEUROLOGIC Neurologic: grossly normal, no motor/sensory deficits - PSYCHIATRIC Psych/Mental Status: normal mood/affect, normal thought content, normal thought process, oriented x 3 Progress - PLAN OF CARE/RESULTS Progress/Plan/Lab Results: Vital Signs - 8 hr 09/27/18 22:41 09/28/18 03:41 Temperature 97.7 F 97.9 F Pulse Rate 92 H 71 Respiratory Rate 20 14 Blood Pressure 123/80 118/70 O2 Sat by Pulse Oximetry 94 L 98 Laboratory Results - last 24 hr 09/28/18 04:10 Troponin T < 0.010 Orders Category Date Time Status TROPONIN T Stat Lab 09/28/18 04:10 Completed Morphine Med 09/28/18 01:06 Discontinued 2 mg IM NOW ONE Morphine Med 09/28/18 00:29 Discontinued 2 mg IV NOW ONE Ondansetron [Zofran] Med 09/28/18 01:07 Discontinued 4 mg IM NOW ONE Ondansetron [Zofran] Med 09/28/18 00:29 Discontinued 4 mg IV NOW ONE EKG [EKG] Stat Ther 09/28/18 00:52 Draft EKG [EKG] Stat Ther 09/28/18 03:45 Draft Transfer/Admit Order [TRANSFER] Routine Transfer 09/28/18 04:48 Ordered - CONSULTS/PCP/HOSPITALIST Notification #1 *Consult/PCP/Hospitalist*: shasha Time Discussed: 04:00 Reason/Comments: admit to [facility] obs Consult Disposition: Admit Departure - Departure Date of Disposition Decision: 09/28/18 Time of Disposition Decision: 04:00 DIAGNOSIS: Chest pain Disposition: ADMITTED INPATIENT 09 Certified Medical Emergency: Emergent Condition: Stable Referrals and Follow-Ups: Alexis Meeks MD [Primary Care Provider] - - Critical Care Note This patient required my direct & personal management of CC.: No Attestation - Physician/ QUAN Attestation Patient care was provided by Advanced Practice Provider:: Yes Advanced Practice Provider:: Nilay Lezama Advanced Practice Provider documentation review:: The Mid-level provider documentation, treatment plan and medical decision making was reviewed by the physician who agrees with all treatment and medical decision making by the [facility]. The physician spent face to face time with patient:: No Advanced Practice Provider documentation review:: Supervising physician onsite and consulted in the evaluation and care of this patient. The physician did not have a face to face encounter with the patient. This chart was documented by the indicated scribe, (Erendira Encarnacion Scribe) and accurately reflects the services I performed and decisions made by me, Nilay Lezama CRNP, as attested by the provider's signature.
[2018-09-28] MEDS ORDERED: ZOFRAN IV PRN (04:55)
[2018-09-28] MEDS ORDERED: MORPHINE IV PRN (04:55)
[2018-09-28] MEDS ORDERED: NITROGLYCERIN SL PRN (09:46)
[2018-09-28] MEDS ORDERED: TICAGRELOR 60 MG PO SCH (10:00)
[2018-09-28] MEDS ORDERED: G.I. COCKTAIL PO ONE (10:39)
[2018-09-28] MEDS ORDERED: LOPRESSOR PO ONE ×2 (11:19→21:00)
--- NOTE | 2018-09-28 11:36 | EKG Report ---
Test Performed on : 09/28/2018 10:56:07 AM Test Reason : Verify rythm Blood Pressure : / mmHG Vent. Rate : 073 BPM Atrial Rate : 073 BPM P-R Int : 162 ms QRS Dur : 088 ms QT Int : 364 ms P-R-T Axes : 024 -22 -50 degrees QTc Int : 401 ms Normal sinus rhythm. Low voltage QRS Septal infarct (cited on or before 05-SEP-2016) Abnormal ECG When compared with ECG of 28-SEP-2018 02:15, (Unconfirmed) QT has shortened Unconfirmed Result
--- NOTE | 2018-09-28 12:02 | HISTORY AND PHYSICAL ---
CHIEF COMPLAINT: Chest pain. HISTORY OF PRESENT ILLNESS: This is a 57-year-old gentleman with a history of coronary artery disease, status post myocardial infarction x2. He presented to the emergency room initially on September 27 complaining of chest pain. At that time, he was ruled out with 2 sets of troponins that were negative and discharged home with a diagnosis of atypical chest pain and esophagitis. He returns to the emergency room later in the day complaining of recurrence of chest pain that radiated to his left shoulder and straight through to his back. He states that this pain has been present for about 10 days now. It is very consistent with his presentation. He has no shortness of breath, nausea, vomiting. No palpitations with this. He does carry a diagnosis of a hiatal hernia and during the last probably 2 months he has had an increase in his reflux, stating that he was originally on omeprazole. He was told to increase this, so increased it to 3 pills twice a day. When that did not help, he was evaluated by his primary care physician and changed to pantoprazole 40 mg daily and he states he has had no change with this. PAST MEDICAL HISTORY: 1. CAD. He reports two prior MIs, stating that 1 was the vessel running behind his heart and another was a vessel in front of his heart. He does state that this pain is not typical of his prior heart pain. 2. Hypertension. 3. Diabetes mellitus. 4. Hypothyroid. 5. Hiatal hernia. 6. Gastroesophageal reflux disease. PAST SURGICAL HISTORY: Back surgery x3. Coronary stents x2. SOCIAL HISTORY: He smoked a pack a day for 25 years. He states he quit 7 years ago when he had his 1st heart attack. ALLERGIES: Indocin with unknown reaction. HOME MEDICATIONS: A list will be obtained by the nursing staff. Once verified, we will review and start medicines as appropriate. REVIEW OF SYSTEMS: Discussed with patient with pertinent positives stated in the history of present illness. He denies any syncope or dizziness, any nausea, vomiting, diarrhea, constipation, any shortness of breath, cough, fever, chills, any black or bloody vomitus or stools, any hematuria, dysuria, frequency, urgency. PHYSICAL EXAMINATION: GENERAL: This is a 57-year-old gentleman who is sitting up in the bed in no distress. VITAL SIGNS: Blood pressure is 137/76 with a heart rate of 73, respirations are 20, temperature is 97.7 degrees oral with O2 saturation that are 95 to 98 percent on room air. EYES: Pupils equal, round, react to light. EOMs are intact. Sclerae are anicteric. HEENT: Head is normocephalic, atraumatic. Mucous membranes are moist. NECK: Supple with trachea midline. CARDIOVASCULAR: Regular rate and rhythm. S1 and S2 appreciated. No murmurs. Peripheral pulses are palpable x4 extremities. PULMONARY: Breath sounds are clear with no increased work of breathing noted. Chest wall is nontender to palpation. Chest rises and falls symmetrically with respiration. GASTROINTESTINAL: Abdomen is soft, nontender, nondistended with bowel sounds in all 4 quadrants. NEUROLOGIC: He is alert, oriented x3. SKIN: Warm and dry. LABORATORIES THIS MORNING: Troponin is less than 0.010. Labs from this ER visit on the , WBC is 5 with hemoglobin 15, hematocrit 44, and platelets of 139,000. Sodium 135, potassium 4.4, BUN 15, creatinine 1.1 with a glucose of 332. Troponins were negative x3 sets. TSH is 3.24. EKG in the emergency room revealed sinus rhythm at a rate of 92 with serial changes of a septal infarct present. ASSESSMENT AND PLAN: 1. Chest pain. We will continue with telemetry. We will identify his home medications and continue these as appropriate. 2. Diabetes mellitus. We will identify his home medications. At present we will place him on fingerstick blood sugars with sliding scale insulin. 3. Hypertension. We will continue home medications. 4. Hypothyroid. TSH was 3.24. We will continue his home medications. I had the patient walk in the hong. He walked about 100 feet and he had a recurrence of this pain. EKG was obtained at that time which was unchanged. He was given a GI cocktail and within about 3 minutes, he stated his pain resolved. We will get a set of cardiac enzymes as well as a troponin. I called Dr. Garza and we will schedule a CTA of his coronaries in the morning. We will give Lopressor 50 mg now and tonight and then 100 mg in the morning in preparation. We will consult Cardiology. Further treatments pending hospital course. Dictated by SYEDA Ornelas for Marnie Duran MD This chart was documented by, SYEDA Ornelas and accurately reflects the services performed, treatment plan and medical decisions as attested by the providers signature Marnie Duran MD. cc: SYEDA Ornelas MD
[2018-09-28] MEDS: TYLENOL PO PRN ×2 (13:43→20:28)
[2018-09-28] MEDS: PATIENT'S OWN MED PO SCH ×2 (13:49→20:20)
--- NOTE | 2018-09-28 17:09 | CARDIOLOGY CONSULTATION ---
DATE: 09/28/2018 REQUESTING PHYSICIAN: Hospitalist Service REASON FOR CONSULTATION: The patient is with chest pain. HISTORY OF PRESENT ILLNESS: Mr. Croft is a pleasant 57-year-old male who presented with chest pain to the emergency room department. The patient states that he had been experiencing chest discomfort randomly over several days for about 10 days. He had been getting over a cold. The pain would last as long as 45 minutes substernal, unrelated to exercise, It did not feel like his usual angina, although it was in the same location. At any rate, because of the recurrent pain, he was advised to be admitted to the hospital. He denies having dyspnea, cough, swelling, diarrhea, dizziness, or syncope. PAST MEDICAL HISTORY: Positive for coronary heart disease. He has had a stent to LAD and diagonal branch in 2011. He has had reintervention in 2017. The patient has a history of hypertension. He has had acid reflux, hypothyroidism, diabetes mellitus. PAST SURGICAL HISTORY: He suffered major accident at work, injured his back and had to go on disability. He had several back surgeries. SOCIAL HISTORY: He is to his second for 29 years or so. He has 3 daughters from the first marriage. He worked for the [employer] and had to go on disability in 1994. He quit smoking several years ago. FAMILY HISTORY: Father had coronary heart disease; however, he is still alive at the age of 88. HOME MEDICATIONS: Listed at this time include allopurinol 300 at bedtime, alogliptin 25 mg at bedtime, aspirin 81 daily, atorvastatin 40 mg at bedtime, carvedilol 6.25 twice a day, furosemide 20 mg daily, glimepiride 4 mg daily, levothyroxine 112 mcg daily, nitroglycerin sublingual, Protonix 40 mg daily, potassium chloride 20 mEq daily, Brilinta 50 mg twice a day. ALLERGIES: Intolerance to indomethacin. REVIEW OF SYSTEMS: He is recuperating from a recent bout of upper respiratory infection. He actually came to the emergency room yesterday and returned hours later because of this recurrent chest pain. PHYSICAL EXAMINATION: Blood pressure is 124/65, temperature 98.2, pulse 59, respirations 20. He is awake, alert, oriented, in no distress. HEENT is unremarkable. Chest: Clear to auscultation and percussion. Heart sounds are regular and rhythmic. No gallop or murmur. His abdomen is obese, nontender. His extremities showed good pulses. No peripheral edema. Neurologic: Follows commands. Moves all 4 extremities. DIAGNOSTIC DATA: Troponin is 0.013, initially was negative. IMPRESSION: 1. The patient is presenting with chest pain that could represent angina pectoris. 2. Severe coronary heart disease, previous stent to LAD and diagonal, with possibility of progression of disease. I have reviewed the angiograms, and he really has small vessels there. 3. The patient is obese with body mass index of 38. 4. Former smoker. 5. Diabetes mellitus. 6. Hypertension. RECOMMENDATIONS: At this point in time, I would suggest to do a rest/stress walking Lexiscan myocardial perfusion study. If any significant abnormality is noted, then he should pursue diagnostic cardiac catheterization. He is encouraged to follow a strict diet. We will try to optimize his lipid panel. I am going to ask him to do a lipid profile in the morning. Further advice will be forthcoming. cc: Geoff Garza MD MTDD
--- NOTE | 2018-09-28 18:35 | HISTORY AND PHYSICAL ---
ADDENDUM TO HISTORY AND PHYSICAL: I saw the patient [id number] and agree with the assessment and plan of nurse practitioner Radha Beltran. This is a 57-year-old gentleman with chest pain and has history of coronary artery disease with stent placement more than 5 years ago. He also has multiple risk factors, including tobacco abuse, hypertension and dyslipidemia. We have requested a consultation with Dr. Garza from Cardiology Service to further assist us in possibly having an ischemic workup done. Acute myocardial ischemia has been ruled out with negative troponin levels, however. cc: Marnie Duran MD
[2018-09-28] MEDS ORDERED: AMBIEN PO PRN (20:12)
[2018-09-28] MEDS: G.I. COCKTAIL PO PRN (20:20)
[2018-09-28] MEDS ORDERED: COREG PO SCH (21:00)
[2018-09-28] MEDS ORDERED: PATIENT'S OWN MED PO SCH (21:00)
[2018-09-28] MEDS ORDERED: SYNTHROID PO SCH (21:00)
[2018-09-28] MEDS ORDERED: ZYLOPRIM PO SCH (21:00)
[2018-09-28] MEDS ORDERED: ASPIRIN EC PO SCH (21:00)
[2018-09-28] MEDS ORDERED: LIPITOR PO SCH (21:00)
--- NOTE | 2018-09-29 06:04 | EKG Report ---
Test Performed on : 09/29/2018 05:32:01 AM Test Reason : chest pain Blood Pressure : / mmHG Vent. Rate : 057 BPM Atrial Rate : 057 BPM P-R Int : 158 ms QRS Dur : 084 ms QT Int : 452 ms P-R-T Axes : 023 -16 -62 degrees QTc Int : 439 ms Sinus bradycardia. Low voltage QRS Septal infarct (cited on or before 05-SEP-2016) Abnormal ECG When compared with ECG of 28-SEP-2018 10:56, (Unconfirmed) No significant change was found Unconfirmed Result
[2018-09-29] MEDS ORDERED: LOPRESSOR PO ONE (07:00)
[2018-09-29 07:31] LABS: AGAP 12; BUN 18 mg/dL (8-22); CALCIUM 8.9 mg/dL (8.8-10.2); CHLORIDE 99 mmol/L (98-107); CHOLESTEROL 125 mg/dL (0-200); COSMO 288; CREATININE 1.1 mg/dL (0.7-1.2); ESTIMATED GFR > 60; GLUCOSE 287 mg/dL (70-104); HDL 32 mg/dL (35-55); LDL 66 mg/dL; MAGNESIUM 1.9 mg/dL (1.5-2.7); POTASSIUM 4.4 mmol/L (3.5-5.1); SODIUM 138 mmol/L (136-145); TCO2 28 mmol/L (25-35); TRIGLYCERIDES 135 mg/dL (39-160); VLDL 27 mg/dL
[2018-09-29] MEDS ORDERED: AMARYL PO SCH (09:00)
[2018-09-29] MEDS ORDERED: PROTONIX PO SCH (09:00)
--- NOTE | 2018-09-29 13:31 | GRADED EXERCISE REPORT ---
DATE: 09/29/2018 ADMINISTRATION EKG INTERPRETATION: ORDERING PHYSICIAN: Geoff Garza MD. INDICATION: Chest pain, CHF. TECHNIQUE: The patient underwent Lexiscan per protocol. Baseline EKG showed some ST flattening in 2, 3, and AVF. Otherwise, nonspecific changes. Baseline heart rate 59, baseline blood pressure 126/70. 0.4 mg was injected. He had no chest pain per se initially. He did have some ST elevation I guess in leads 3 where previously had been depressed. Difficult to say because baseline was kind of equivocal. I would say electrically this was negative. He did have some chest pressure though near the end of the test, about 4 minutes, which resolved spontaneously. So, I will have to call that clinically positive, but it was almost 4 minutes after the administration of Lexiscan, so I think that is unlikely. Myocardial perfusion will be reported separately. Peak heart rate 70, peak blood pressure was 130/82. cc: Ladarius Connolly MD
[2018-09-29] MEDS: TYLENOL PO PRN (14:47)
[2018-09-29] MEDS: PATIENT'S OWN MED PO SCH (14:47)
[2018-09-29] MEDS ORDERED: LEXISCAN ONE (15:02)
[2018-09-29] MEDS ORDERED: MORPHINE IV PRN (16:13)
--- NOTE | 2018-09-29 16:14 | Diag Imaging Result Doc PS360 ---
EXAM: LOWER LEG-LEFT HISTORY: fall TECHNIQUE: Two views COMPARISON: None. FINDINGS: No fracture, dislocation, or joint space abnormality is identified. IMPRESSION: No acute abnormality is appreciated. Electronically signed by Zaria Ramon 09/29/2018 4:12 PM
--- NOTE | 2018-09-29 16:15 | Diag Imaging Result Doc PS360 ---
EXAM: LOWER LEG-RIGHT HISTORY: fall TECHNIQUE: Two views COMPARISON: None. FINDINGS: No fracture, dislocation, or joint space abnormality is identified. There are mild degenerative changes. IMPRESSION: No acute abnormality is appreciated. Electronically signed by Zaria Ramon 09/29/2018 4:13 PM
[2018-09-29] MEDS: G.I. COCKTAIL PO PRN (16:30)
--- NOTE | 2018-09-29 16:58 | Diag Imaging Result Document ---
PROCEDURE NAME: MYOCARDIAL PERF SCAN, STR/REST - 09/29/2018 INDICATION: This is a 57-year-old male with chest pain, coronary heart disease, previous stents to LAD. DESCRIPTION OF PROCEDURE: The patient came into the nuclear lab and received a rest injection of technetium 99 sestamibi 15.9 mCi. Multiple tomographic views of the cardiac structures were obtained at rest. Subsequently the patient underwent a infusion of Lexiscan 0.4 mg under the supervision of Dr. Connolly. At peak infusion was injected with technetium 99 sestamibi 46.7 mCi. Multiple tomographic views of the cardiac structures were obtained following completion of the exercise protocol. SUMMARY OF ELECTROCARDIOGRAPHIC PORTION OF THE STUDY: Dr. Connolly has reported the ECG portion. SUMMARY OF MYOCARDIAL PERFUSION PORTION OF THE STUDY: Poststress tomographic views of the left ventricle showed a moderately extensive, mild to moderate in severity septal defect in the midportion of the interventricular septum. It seems to extend to the apical portion. The inferior wall shows a severe extensive defect. The rest images showed partial reversibility of the septal defect and significant reversibility of the inferior wall defect. The polar plots revealed the same. There is a scintigraphic evidence of a septal scar with morro-scar ischemia in the midsection of the interventricular septum and a little bit of the apical septum. In addition, there is extensive inducible ischemia of the inferior wall. Gated SPECT shows preserved ejection fraction of 61% with no significant wall motion abnormality. Lung/heart ratio is normal at 0.40. TID is 1. CONCLUSIONS: In summary, this study showed: 1. Abnormal poststress myocardial perfusion scan. There is a scintigraphic evidence of inducible ischemia of significant degree involving the entire inferior wall. In addition, there is inducible ischemia of mild to moderate degree involving the interventricular septum on top of a preexisting scar. This is of more limited extent. 2. Preserved left ventricular systolic function. Ejection fraction is 61%. Clinical correlation is strongly recommended. The patient probably needs a heart catheterization at this point. cc: Geoff Garza MD
--- NOTE | 2018-09-29 17:18 | EKG Report ---
Test Performed on : 09/29/2018 4:44:06 PM Test Reason : cp Blood Pressure : / mmHG Vent. Rate : 069 BPM Atrial Rate : 069 BPM P-R Int : 158 ms QRS Dur : 086 ms QT Int : 396 ms P-R-T Axes : 015 -14 -43 degrees QTc Int : 424 ms Normal sinus rhythm. Septal infarct (cited on or before 05-SEP-2016) Abnormal ECG When compared with ECG of 29-SEP-2018 05:32, (Unconfirmed) Serial changes of Septal infarct present Unconfirmed Result
[2018-09-29 19:47] VITALS: BP 128/78
--- NOTE | 2018-09-30 02:02 | ED EKG INTERP ---
This chart was entered by Erendira Encarnacion Scribe, acting as scribe for Antwan Croft MD. EKG Interpretation - EKG Time of EKG reading by physician:: 13:31 EKG Read and Signed by:: Antwan Croft EKG Interpretation (*Must complete 3 of following elements*): Abnormal (septal infarct) Rate: 92 Rhythm: nsr [place]: normal QRS: Q Waves present DE Interval: normal ST Wave: normal Prior EKG Comparison: unchanged from prior Attestation - Physician/ QUAN Attestation Patient care was provided by Advanced Practice Provider:: Yes Advanced Practice Provider documentation review:: The Mid-level provider documentation, treatment plan and medical decision making was reviewed by the physician who agrees with all treatment and medical decision making by the MLP. The physician spent face to face time with patient:: No Advanced Practice Provider documentation review:: Supervising physician onsite and consulted in the evaluation and care of this patient. The physician did not have a face to face encounter with the patient. This chart was documented by the indicated scribe, (Erendira Encarnacion Scribe) and accurately reflects the services I performed and decisions made by me, Antwan Croft MD, as attested by the provider's signature.
--- NOTE | 2018-09-30 05:22 | DISCHARGE SUMMARY ---
ADMISSION DATE: 09/27/2018 DISCHARGE DATE: 09/29/2018 ADDENDUM REPORT DISCHARGE DIAGNOSIS: Unstable angina. The patient was admitted for atypical chest pain. He has a history of CAD. Unfortunately, his stress test done the day of transfer showed inducible ischemia of significant degree involving the inferior wall entirely and [id number] degree in the interventricular septum. He was clinically symptomatic during the test, although unusually, near the end of the test. In any case, patient was evaluated, and he was transferred to [facility], where that will be the planned per Dr. Garza. Apparently, he did roll off the myocardial perfusion scan and hit his legs. We did lower extremity plain films, which were unremarkable. cc: Ladarius Connolly MD
[2018-09-30] MEDS ORDERED: AMARYL PO SCH (08:00)
--- NOTE | 2018-09-30 09:05 | DISCHARGE SUMMARY ---
ADMISSION DATE: 09/28/2018 DISCHARGE DATE: 09/29/2018 PRIMARY CARE PHYSICIAN: Dr. Alexis Meeks. ADMISSION DIAGNOSES: 1. Chest pain. 2. Diabetes. 3. Hypertension. 4. Hypothyroidism. DISCHARGE DIAGNOSES: 1. Chest pain with positive stress test. 2. Diabetes. 3. Hypertension. 4. Hypothyroidism. SUMMARY OF FINDINGS: This is a 57-year-old male, who presented to the emergency room on the with chest pain. He was ruled out with 2 sets of troponin that were negative and discharged home with a diagnosis of atypical chest pain and esophagitis. Returned to the emergency room later in the day complaining of recurrence of chest pain that radiated to his left shoulder and straight through to his back. States that the pain had been present for about 10 days. It is very consistent with his presentation. No shortness of breath, nausea, vomiting. No palpitations. We did a cardiology consult and a myocardial perfusion scan was performed, that showed abnormal post stress myocardial perfusion scan. Had an inducible ischemia of significant degree involving the entire inferior wall and in addition, there is inducible ischemia of [id number] degree involving the interventricular septum on top of a pre-existing scar. So, he was transferred to [facility] for further evaluation and treatment in stable condition. We did also do a left leg x-ray due to a fall with no abnormality appreciated, of both the left and the right lower extremities. TIME SPENT: 35 minute discharge. Dictated by SYEDA Greene for Ladarius Connolly MD cc: SYEDA Greene MD Gregory S. Cheatham, MD
== END 2018-09-29 21:10 | disposition short-term general hospital (02) ==
LOC: P.ED 22:07 → P.MEDSURG 22:07 → SUATTDRO 09-28 05:35 → P.MEDSURG 09-28 09:18
PROVIDERS: ATTEND Internal Medicine
CPT/HCPCS: 71020; 71046; 73590; 78452; 80048; 80053; 80061; 82550; 83735; 83880; 84443; 84484; 85025; 85610; 85730; 93005; 93017; 94761; 96372; 99284; 99285; A9270; A9500; J2270; J2405; J2785